=== PATIENT | female | born 1995 | race Caucasian/White ===

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

== ENCOUNTER 2019-08-13 10:25 | Emergency (ER) | payer OTHER ==
[2019-08-13 10:43] VITALS: BP 121/78; PULSE 92; RESP 18; TEMP 98.7
--- NOTE | 2019-08-13 11:15 | ED ---
Psych HPI - General Chief Complaint: Psychiatric Symptoms Stated Complaint: suicidal Time Seen by Provider: 08/13/19 10:40 Source: patient, RN notes reviewed Mode of arrival: ambulatory Limitations: no limitations - History of Present Illness Initial Comments: This a 23-year-old female presents emergency department with friend for significant evaluation. Patient states that she's had increasing depression. Patient states that she's been depressed her several years. Patient states she sees her primary care physician for medications. She does not have a current psychiatrist or therapist. She's had thoughts of quite frequently most recently 2 weeks ago. Patient denies any physical complaints at this time denies any drug or alcohol use. - Related Data Home Medications Medication Instructions Recorded Confirmed FLUoxetine HCL [PROzac] 80 mg PO HS 08/13/19 08/13/19 Ziprasidone HCl 40 mg PO HS 08/13/19 08/13/19 cloNIDine HCL [Catapres] 0.1 mg PO HS 08/13/19 08/13/19 lamoTRIgine [LaMICtal] 150 mg PO HS 08/13/19 08/13/19 Allergies Allergy/AdvReac Type Severity Reaction Status Date / Time No Known Allergies Allergy Verified 08/13/19 11:02 Review of Systems ROS Statement: Those systems with pertinent positive or pertinent negative responses have been documented in the HPI. ROS Other: All systems not noted in ROS Statement are negative. Past Medical History Past Medical History: No Reported History History of Any Multi-Drug Resistant Organisms: None Reported Past Surgical History: Orthopedic Surgery Past Psychological History: ADD/ADHD, Anxiety, Depression Smoking Status: Never smoker Past Alcohol Use History: None Reported Past Drug Use History: None Reported General Exam Limitations: no limitations General appearance: alert, in no apparent distress Head exam: Present: atraumatic, normocephalic, normal inspection Eye exam: Present: normal appearance, PERRL, EOMI. Absent: scleral icterus, conjunctival injection, periorbital swelling ENT exam: Present: normal exam, normal oropharynx, mucous membranes moist, TM's normal bilaterally Neck exam: Present: normal inspection, full ROM. Absent: tenderness, meningismus, lymphadenopathy Respiratory exam: Present: normal lung sounds bilaterally. Absent: respiratory distress, wheezes, rales, rhonchi, stridor Cardiovascular Exam: Present: regular rate, normal rhythm, normal heart sounds. Absent: systolic murmur, diastolic murmur, rubs, gallop, clicks GI/Abdominal exam: Present: soft, normal bowel sounds. Absent: distended, tenderness, guarding, rebound, rigid Neurological exam: Present: alert, oriented X3, CN II-XII intact Skin exam: Present: warm, dry, intact, normal color. Absent: rash Course Vital Signs 08/13/19 10:38 Temperature 98.7 F Pulse Rate 92 Respiratory 18 Rate Blood Pressure 121/78 O2 Sat by Pulse 99 Oximetry Medical Decision Making - Medical Decision Making 23-year-old female presented for psychiatric evaluation revealed a by EPS and case discussed with psychiatrist recommends outpatient follow-up with therapists she has no current suicidal ideation. She has no plan to harm herself return parameters were discussed safety plan in place. - Lab Data Lab Results 08/13/19 Range/Units 11:17 Urine Opiates Screen Not Detected (NotDetected) Ur Oxycodone Screen Not Detected (NotDetected) Urine Methadone Screen Not Detected (NotDetected) Ur Propoxyphene Screen Not Detected (NotDetected) Ur Barbiturates Screen Not Detected (NotDetected) U Tricyclic Antidepress Not Detected (NotDetected) Ur Phencyclidine Scrn Not Detected (NotDetected) Ur Amphetamines Screen Not Detected (NotDetected) U Methamphetamines Scrn Not Detected (NotDetected) U Benzodiazepines Scrn Detected H (NotDetected) Urine Cocaine Screen Not Detected (NotDetected) U Marijuana (THC) Screen Not Detected (NotDetected) Disposition Clinical Impression: Depression Disposition: HOME SELF-CARE Condition: Stable Instructions (If sedation given, give patient instructions): Depression (ED) Additional Instructions: Please return to the Emergency Department if symptoms worsen or any other concerns. Is patient prescribed a controlled substance at d/c from ED?: No Referrals: Starr Alvarez DO [Primary Care Provider] - 1-2 days Time of Disposition: 13:23
[2019-08-13 11:49] LABS: Amphetamine Screen,Urine Not Detected (NotDetected); Barbiturate Screen,Urine Not Detected (NotDetected); Benzodiazepines Screen,Urine Detected (NotDetected); Cocaine Screen,Urine Not Detected (NotDetected); Methadone Screen, Urine Not Detected (NotDetected); Opiate Screen,Urine Not Detected (NotDetected); Oxycodone Screen, Urine Not Detected (NotDetected); Phencyclidine Screen,Urine Not Detected (NotDetected); Tricyclic Antidepressant,Urine Not Detected (NotDetected); Urn Cannabinoid Scrn Not Detected (NotDetected)
== END 2019-08-13 13:34 | disposition home or self-care (01) ==
LOC: EC 10:25
DX: F32.9 Major depressive disorder, single episode, unspecified (principal); F41.9 Anxiety disorder, unspecified; F90.9 Attention-deficit hyperactivity disorder, unspecified type; Z79.899 Other long term (current) drug therapy
CPT/HCPCS: 80306; 82075; 99285

== ENCOUNTER 2019-08-20 10:07 | Inpatient (IN) | payer MEDICAID, OTHER ==
[2019-08-20 14:14] LABS: ALT 23 U/L (4-34); AST 27 U/L (14-36); Acetaminophen <10.0 ug/mL; African American GFR (CKD) >90 (>60 ml/min/1.73 sqM); Albumin 3.9 g/dL (3.5-5.0); Alcohol <10 mg/dL; Alkaline Phosphatase 109 U/L (38-126); Anion Gap 8 mmol/L; Blood Urea Nitrogen 15 mg/dL (7-17); Calcium 9.3 mg/dL (8.4-10.2); Carbon Dioxide 25 mmol/L (22-30); Chloride 103 mmol/L (98-107); Glucose 90 mg/dL (74-99); Non-African American GFR(CKD) >90 (>60 ml/min/1.73 sqM); Salicylate <1.0 mg/dL; Sodium 136 mmol/L (137-145); Total Bilirubin 0.4 mg/dL (0.2-1.3); Total Protein 6.8 g/dL (6.3-8.2)
[2019-08-20 14:30] LABS: Anisocytosis Slight; Basophils % (A) 0 %; Eosinophils # (A) 0.1 k/uL (0-0.7); Eosinophils % (A) 1 %; HCT 32.5 % (34.0-46.0); HGB 10.2 gm/dL (11.4-16.0); Hypochromasia Marked; Lymphocytes # (A) 1.6 k/uL (1.0-4.8); Lymphocytes % (A) 17 %; MCH 23.6 pg (25.0-35.0); MCHC 31.4 g/dL (31.0-37.0); Mean Platelet Volume 6.8; Microcytosis Slight; Monocytes # (A) 0.6 k/uL (0-1.0); Monocytes % (A) 6 %; Neutrophils # (A) 7.2 k/uL (1.3-7.7); Neutrophils % (A) 74 %; Platelet Count 324 k/uL (150-450); RBC 4.33 m/uL (3.80-5.40); RDW 16.3 % (11.5-15.5); WBC 9.6 k/uL (3.8-10.6)
[2019-08-20] MEDS ORDERED: ACETAMINOPHEN TAB 325 MG TAB PO PRN (18:19)
[2019-08-20] MEDS ORDERED: MAG HYDROX/AL HYDROX/SIMETH 30 ML CUP PO PRN (18:19)
[2019-08-20] MEDS ORDERED: ZIPRASIDONE 20 MG VIAL IM PRN (22:35)
[2019-08-20] MEDS ORDERED: lamoTRIgine 100 MG TAB PO SCH (22:45)
[2019-08-20] MEDS ORDERED: ZIPRASIDONE 20 MG CAP PO SCH (23:00)
[2019-08-20] MEDS ORDERED: MAGNESIUM HYDROXIDE 2,400 MG/10 ML CUP PO PRN (23:00)
[2019-08-20] MEDS ORDERED: cloNIDine HCL 0.1 MG TAB PO SCH (23:00)
[2019-08-20] MEDS ORDERED: LORazepam 1 MG TAB PO PRN (23:00)
[2019-08-20] MEDS ORDERED: lamoTRIgine 25 MG TAB PO SCH (23:00)
[2019-08-21 08:17] LABS: Anisocytosis Slight; Basophils % (A) 1 %; Eosinophils # (A) 0.1 k/uL (0-0.7); Eosinophils % (A) 2 %; HCT 33.9 % (34.0-46.0); HGB 10.3 gm/dL (11.4-16.0); Hypochromasia Moderate; Lymphocytes % (A) 23 %; MCH 22.6 pg (25.0-35.0); MCHC 30.4 g/dL (31.0-37.0); MCV 74.2 fL (80.0-100.0); Mean Platelet Volume 7.5; Microcytosis Slight; Monocytes # (A) 0.6 k/uL (0-1.0); Monocytes % (A) 7 %; Neutrophils # (A) 5.5 k/uL (1.3-7.7); Neutrophils % (A) 65 %; Platelet Count 333 k/uL (150-450); RBC 4.56 m/uL (3.80-5.40); RDW 16.5 % (11.5-15.5); WBC 8.4 k/uL (3.8-10.6)
[2019-08-21 08:29] LABS: ALT 23 U/L (4-34); AST 26 U/L (14-36); African American GFR (CKD) >90 (>60 ml/min/1.73 sqM); Albumin 4.1 g/dL (3.5-5.0); Alkaline Phosphatase 106 U/L (38-126); Anion Gap 10 mmol/L; Blood Urea Nitrogen 14 mg/dL (7-17); Calcium 9.3 mg/dL (8.4-10.2); Carbon Dioxide 27 mmol/L (22-30); Chloride 103 mmol/L (98-107); Cholesterol 222 mg/dL (<200); Glucose 87 mg/dL (74-99); HDL Cholesterol 41 mg/dL (40-60); LDL Cholesterol,Calculated 145 mg/dL (0-99); Non-African American GFR(CKD) >90 (>60 ml/min/1.73 sqM); Potassium 4.3 mmol/L (3.5-5.1); Sodium 140 mmol/L (137-145); Total Bilirubin 0.6 mg/dL (0.2-1.3); Total Protein 7.1 g/dL (6.3-8.2); Triglycerides 180 mg/dL (<150)
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
[2019-08-21 18:07] LABS: Hemoglobin A1C 5.8 % (4.0-6.0)
[2019-08-21] MEDS: traZODone HCL 50 MG TAB PO SCH (20:06)
[2019-08-21] MEDS: lamoTRIgine 100 MG TAB PO SCH (20:07)
[2019-08-21] MEDS: FLUoxetine HCL 20 MG CAP PO SCH (20:07)
--- NOTE | 2019-08-21 22:36 | P.CONS ---
History of Present Illness - Reason for Consult Consult date: 08/21/19 medical eval - Chief Complaint suicidal - History of Present Illness Hope Emanuel is a 23 yo F with PMH significant for major depression who presented to the ED complaining of worsening depression and suicidal thoughts. She was recently seen in the ED last week for the same and at that time was discharged home. Pt feels things have overall worsened over the past month and has become overwhelming. She denies chest pain, shortness of breath, cough, headache, fever or chills. On presentation her vitals were stable, labs significant for Hgb 10, UDS negative. Review of Systems All systems: negative Constitutional: Denies chills, Denies fever Eyes: denies blurred vision, denies pain Ears, nose, mouth and throat: Denies headache, Denies sore throat Cardiovascular: Denies chest pain, Denies shortness of breath Respiratory: Denies cough Gastrointestinal: Denies abdominal pain, Denies diarrhea, Denies nausea, Denies vomiting Genitourinary: Denies dysuria, Denies hematuria Musculoskeletal: Denies myalgias Integumentary: Denies pruritus, Denies rash Neurological: Denies numbness, Denies weakness Psychiatric: Reports as per HPI, Reports anhedonia, Reports depression, Reports suicidal ideation, Denies anxiety Endocrine: Denies fatigue, Denies weight change Past Medical History Past Medical History: No Reported History History of Any Multi-Drug Resistant Organisms: None Reported Past Surgical History: Orthopedic Surgery Past Psychological History: ADD/ADHD, Anxiety, Depression Smoking Status: Never smoker Past Alcohol Use History: None Reported Past Drug Use History: None Reported Medications and Allergies Home Medications Medication Instructions Recorded Confirmed Type FLUoxetine HCL [PROzac] 80 mg PO HS 08/13/19 08/13/19 History Ziprasidone HCl 40 mg PO HS 08/13/19 08/13/19 History cloNIDine HCL [Catapres] 0.1 mg PO HS 08/13/19 08/13/19 History lamoTRIgine [LaMICtal] 150 mg PO HS 08/13/19 08/13/19 History Allergies Allergy/AdvReac Type Severity Reaction Status Date / Time No Known Allergies Allergy Verified 08/13/19 11:02 Physical Exam Vitals: Vital Signs Temp Pulse Resp BP Pulse Ox 08/21/19 06:37 98.6 F 78 18 115/69 96 General: well nourished, well developed, NAD. Vitals reviewed Eyes: PERRL, EOMI, conjunctiva normal HENT: normocephalic, mucus membranes moist Neck: supple, no JVD Lungs: normal respiratory effort, no wheezes or rales CV: Regular rate and rhythm, no murmur. Peripheral pulses 2+ Abdomen: soft, nondistended, no organomegaly Lymph: no cervical or axillary LAD Skin: warm and dry. Neuro: A&Ox3, anxious mood Results CBC & Chem 7: 08/21/19 07:37 07 07:37 Labs: Abnormal Lab Results - Last 24 Hours (Table) 08/21/19 08/21/19 Range/Units 07:37 07:37 Hgb 10.3 L (11.4-16.0) gm/dL Hct 33.9 L (34.0-46.0) % MCV 74.2 L (80.0-100.0) fL MCH 22.6 L (25.0-35.0) pg MCHC 30.4 L (31.0-37.0) g/dL RDW 16.5 H (11.5-15.5) % Triglycerides 180 H (<150) mg/dL Cholesterol 222 H (<200) mg/dL LDL Cholesterol, Calc 145 H (0-99) mg/dL Assessment and Plan (1) Severe recurrent major depression Current Visit: Yes Status: Acute Code(s): F33.2 - MAJOR DEPRESSV DISORDER, RECURRENT SEVERE W/O PSYCH FEATURES SNOMED Code(s): 975104567016 (2) Suicidal ideation Current Visit: Yes Status: Acute Code(s): R45.851 - SUICIDAL IDEATIONS SNOMED Code(s): 9603096 (3) Anemia Current Visit: Yes Status: Acute Code(s): D64.9 - ANEMIA, UNSPECIFIED SNOMED Code(s): 440662151 Plan: 1. Suicidal ideation. Severe MDD. Management per psychiatry 2. Anemia. Obtain ferritin, suspect secondary to menorrhagia. Consider iron supplementation
[2019-08-22] MEDS: lamoTRIgine 100 MG TAB PO SCH ×3 (08:26→21:28)
[2019-08-22] MEDS: FLUoxetine HCL 20 MG CAP PO SCH ×2 (08:51→21:27)
[2019-08-22 09:39] VITALS: RESP 16
--- NOTE | 2019-08-22 10:08 | P.PN ---
Progress Note - Text Progress Note Date: 08/22/19 Interval History: Patient was seen wandering the hallways and was directable and agreeable to dakotah jones with investigative writer in the office. Patient had just recently taken her medications this morning. Patient appeared to be somewhat tearful and was focused on discharge claiming that her mother does not want her to be in the hospital any longer and that she will watch her as an outpatient. She continues to minimize her symptoms and depression. Patient was fairly superficial with investigative writer in claims that she is doing "fine" however was tearful throughout the interview and had an incongruent affect. Patient offered no other complaints on the unit and states that she has been going to groups. Patient states that she is also taking her medications as prescribed. She continues to endorse anxiety. She states that she did not sleep well last night. At this time patient denies any suicidal or homical ideations, intent or plan. Patient denies any auditory, visual hallucinations and denies any paranoia or delusions. Patient denies any side effects from the medications and has been compliant with meds. Mental Status Exam: General Appearance: Patient appears to be overweight, stated age is alert, directable, and tearful. Patient appears to have fair hygiene and grooming. Superficial. Behavior: Patient is seated without any agitated behavior. Tearful. Demanding. Speech: Patient's speech is fluent and nonpressured. Soft tone of voice. Mood/Affect: Patient reports their mood is "okay now", affect is congruent and tearful. Suicidality/Homicidality: Patient denies having any homicidal ideation intent or plan. Denies any suicidal ideations intent or plan Perceptions: Patient denies any visual hallucinations and denies any auditory hallucinations Though content/process: There is no evidence of any delusional thought content and thought process is linear and goal-directed. Preoccupied with discharge and continues minimizing her symptoms. Memory and concentration: AOX3, grossly intact for the purposes of this session Judgment and insight: poor, superficial. Assessment Major depressive disorder, without psychotic features Plan: -Patient continues to meet criteria for inpatient psychiatric admission for symptom stabilization and safety. Patient has signed adult voluntary form and medication consent and was placed in patient's chart. Patient signed AMA however revoked her AMA soon after. -Medications: Continue Prozac 80 mg nightly for anxiety/mood, Lamictal 20 mg twice a day for mood stabilization/depression, continue with trazodone 50 mg nightly for insomnia/mood. -When necessary Ativan and Geodon for agitation/aggression. -NRT -not needed as patient does not smoke. -SW on board for discharge planning. Encouraged the patient to participate in milieu.
[2019-08-22] MEDS: traZODone HCL 50 MG TAB PO SCH (21:28)
[2019-08-23] MEDS: lamoTRIgine 100 MG TAB PO SCH ×2 (08:21→20:48)
--- NOTE | 2019-08-23 16:52 | P.PN ---
Progress Note - Text Progress Note Date: 08/23/19 Subjective: Patient was seen today as a cross coverage for . The patient was evaluated, chart reviewed, case discussed with the treatment team. Patient reported good sleep, and according to chart review patient slept about 8 hours last night. Appetite was reported as "good ". Patient has been going to all groups and other unit activities. The patient is compliant with her medications and denies any adverse reactions. Patient reports her mood is much better today and she was very excited about her family would visit her today and tomorrow. Denies feeling depressed, suicidal or homicidal ideation, and he denies any hallucinations. She reports no mood swings, anger or agitation. Denies any manic or psychotic symptoms. Patient was talking about continuing therapy after discharge and hoping for discharge on Sunday. Objective: Vitals has been reviewed. Mental status examination; Appearance: The patient appears stated age, adequately groomed and dressed, no specific features. Gait/posture: Normal gait, Normal arm swinging: No abnormal movements. Attitude and behavior: engaged, cooperative, eye contact. Motor activity: Normal psychomotor activity Speech: Normal rate, tone. Mood: Euthymic Affect: Constricted Thought form: goal-directed, linear, coherent. Thought content: Non-delusional, denies suicidal thoughts, denies homicidal thoughts, denies intentions or plans. Perception: Denies any auditory or visual hallucinations Attention: No impairment. Orientation: Patient patient was fully oriented to time place person and situation. Insight: Patient has fair insight about her psychiatric disorder. Judgment: Patient has fair judgment about her psychiatric treatment. Assessment: Major depressive disorder, severe, without psychotic features. Plan: Continue inpatient level of care due to need for further monitoring and discharge planning Precautions: Continue 15 minutes check for safety. Consider medical consultation if any acute medical issues arise. Provide the patient individual, group therapy, substance use disorder counseling to give better insight and learn coping skills. Continue follow-up with the patient daily to monitor progress of depression symptoms. Medications: Continue Lamictal for mood stabilization and depression. Continue Prozac for depression and anxiety. Continue trazodone at bedtime to help with depression and insomnia. Discharge patient to OUTPATIENT services upon a stabilization
[2019-08-23] MEDS: FLUoxetine HCL 20 MG CAP PO SCH (20:47)
[2019-08-23] MEDS: traZODone HCL 50 MG TAB PO SCH (20:48)
[2019-08-24 06:30] VITALS: TEMP 98.5
[2019-08-24] MEDS: lamoTRIgine 100 MG TAB PO SCH ×2 (08:22→20:41)
--- NOTE | 2019-08-24 15:06 | P.PN ---
Progress Note - Text Progress Note Date: 08/24/19 Subjective: Patient was seen today as a cross coverage for . The patient was evaluated, chart reviewed, case discussed with the treatment team. Patient reports having good sleep last night and he denies any appetite problems. She continues to attend groups and most of unit activities, and he continues to take her psychiatric medications was no side effects reported. Patient reports has very good visit with her family yesterday and she is expecting other family members to visit today. She reports feeling stable emotionally, denies feeling depressed, hopeless, or suicidal. She denies any manic or psychotic symptoms. Patient feels excited about possibility of discharge tomorrow. Objective: Mental status examination; Appearance: The patient appears stated age, adequately groomed and dressed, no specific features. Gait/posture: Normal gait, Normal arm swinging: No abnormal movements. Attitude and behavior: engaged, cooperative, eye contact. Motor activity: Normal psychomotor activity Speech: Normal rate, tone. Mood: "Feeling great". Affect: Constricted Thought form: goal-directed, linear, coherent. Thought content: Non-delusional, denies suicidal thoughts, denies homicidal thoughts, denies intentions or plans. Perception: Denies any auditory or visual hallucinations Attention: No impairment. Orientation: Patient patient was fully oriented to time place person and situation. Insight: Patient has fair insight about her psychiatric disorder. Judgment: Patient has fair judgment about her psychiatric treatment. Assessment: Major depressive disorder, severe, without psychotic features. Plan: Continue inpatient level of care due to need for further monitoring and discharge planning Precautions: Continue 15 minutes check for safety. Consider medical consultation if any acute medical issues arise. Provide the patient individual, group therapy, substance use disorder counseling to give better insight and learn coping skills. Continue follow-up with the patient daily to monitor progress of depression symptoms. Medications: Continue Lamictal for mood stabilization and depression. Continue Prozac for depression and anxiety. Continue trazodone at bedtime to help with depression and insomnia. Discharge patient to OUTPATIENT services upon a stabilization
[2019-08-24 16:08] LABS: Appearance,Urine Clear (Clear); Bacteria,Urine Occasional /hpf; Bilirubin,Urine Negative (Negative); Blood,Urine Negative (Negative); Color,Urine Yellow; Glucose,Urine (UA) Negative (Negative); Ketones,Urine Negative (Negative); Leukocyte Esterase,Urine Trace (Negative); Mucus,Urine Rare /hpf; Nitrite,Urine Negative (Negative); Protein,Urine Negative (Negative); RBC,Urine <1 /hpf (0-5); Specific Gravity,Urine 1.022 (1.001-1.035); Squamous Epithelial Cell,Urine 1 /hpf (0-4); Urobilinogen,Urine <2.0 mg/dL (<2.0); WBC,Urine 2 /hpf (0-5)
[2019-08-24] MEDS: FLUoxetine HCL 20 MG CAP PO SCH (20:41)
[2019-08-24] MEDS: traZODone HCL 50 MG TAB PO SCH (20:41)
[2019-08-25 06:47] VITALS: BP 116/58; PULSE 85
[2019-08-25] MEDS: lamoTRIgine 100 MG TAB PO SCH (08:17)
--- NOTE | 2019-08-25 10:13 | P.DS ---
Providers Date of admission: 08/20/19 17:07 Expected date of discharge: 08/25/19 Attending physician: Ming Yang MD Consults: 08/20/19 18:19 Consult Physician Routine Consulting Provider: Subhash Lynn Consult Reason/Comments: H & P and medical care Do you want consulting provider notified?: Yes Primary care physician: Starr Alvarez - Discharge Diagnosis(es) (1) Major depressive disorder without psychotic features Current Visit: Yes Status: Acute Priority: High Hospital Course: Admission HPI: Patient is a 23-year-old female who currently lives with her girlfriend and apartment has no kids and is currently working at the [employer]. Patient presented to the hospital yesterday for complaints of depression and suicidal thoughts. Patient was previously seen in the ER on 08/13/2019 for depression and was discharged back home. Patient claims that her girlfriend told her to come to the hospital to get help. She states that she was having a "rough month" and states that it has gradually been worsening for her. She endorsed significant stress related to her work and states that they have been very busy at the animal [employer] and states that she is having significant problems with her boss. She states that her mood has been depressed however currently claims that her mood is "okay now" and claims that she has good support from her girlfriend and other family members. She states that she has mild anxiety at this time. She claims that she was having thoughts of suicide at home however this has remitted at this time. She denied any history of manic episodes. She claims that she has been taking her medications as prescribed however states that she is seeing a PCP for her psychiatric medications. She states that her sleep is about 7-8 hours a night. Patient denies any suicidal or homicidal ideations intent or plan. At this time patient denies any auditory or visual hallucinations. Patient denies any flight of ideas racing thoughts and increased in goal directed behavior. Patient admits to using alcohol occasionally however denies any other drug use. Denies any cigarette use. Hospital course: Upon admission to the unit patient was initially depressed, tearful. Patient initially signed adult voluntary form however shortly after signed AMA and ended up revoking AMA the next day. Patient was however directable and agreeable to commence treatment. Patient got along well with other patients on the unit and followed unit protocol. Patient was compliant with the medications and denied any side effects throughout hospital course. Patient was re-started on her home dose of Prozac 80 mg nightly for anxiety/mood and Lamictal was restarted and increased to 100 mg twice a day for mood stabilization/depression, trazodone was started at 50 mg nightly for insomnia/mood. Clonidine and Geodon were discontinued. Patient spoke of her stressors and engaged in therapy both group and individual. Patient was also seen by medical team for history and physical exam. Throughout the course of the hospitalization patient gradually improved with regards to mood, anxiety, sleep and became future oriented with improved insight and judgment. On the day of discharge patient denied any suicidal or homicidal ideations intent or plan denied any auditory or visual hallucinations. Patient endorsed wanting to live for her health and her future. The patient denied any access to guns or weapons. Patient denied any paranoia and did not endorse any delusions. Patient does not have a significant history of substance abuse however was counseled on abstaining from all substances including alcohol and marijuana. Patient was also counseled on the medications and need for regular compliance and was encouraged to follow-up with their outpatient appointment for mental health and also for primary care. Prior to discharge a family meeting will be arranged by social service assistant to answer any questions and ensure safety upon discharge. Mental status exam: General Appearance: Patient appears to be overweight, stated age is alert, has tattoos on her arms, pleasant, and cooperative. Patient is in no acute distress and has fair hygiene and grooming Behavior: Patient is calmly seated without any agitated behavior. Cooperative. Speech: Patient's speech is fluent and nonpressured. Mood/Affect: Patient reports their mood is "much better", affect is congruent and euthymic. Suicidality/Homicidality: Patient denies having any suicidal or homicidal ideation intent or plan. Perceptions: Patient denies any auditory or visual hallucinations. Though content/process: There is no evidence of any delusional thought content and thought process is linear and goal-directed. more future oriented Memory and concentration: AOX3, grossly intact for the purposes of this session. Can spell "WORLD" backwards correctly. Judgment and insight: Improved with guarded prognosis Impression: Major depressive disorder, without psychotic features Plan: -Continue with discharge today as patient has improved and stabilized psychiatrically and is not currently an imminent threat to herself and/or others. -Continue medications: Prozac 80 mg daily for anxiety/mood, Lamictal 100 mg twice a day for mood stabilization/depression, trazodone 50 mg daily at bedtime for insomnia/mood. -Patient was counseled on the need for medication compliance and appropriate follow-up at mental health and also primary care for medical issues. Patient verbalized understanding and agreed. -Social work to arrange for and conduct family meeting to ensure safety upon discharge and answer any questions/concerns. Social work also to arrange for patients follow up appointments for psychiatric care along with follow up with primary care provider. Patient was also encouraged to continue on with her individual therapy as an outpatient. -Patient counseled on abstaining from recreational drugs and marijuana and alcohol. Was informed/educated on the adverse effects on their physical and mental health. Patient verbally agreed and understood. -Patient was instructed to return to the hospital or seek immediate medical care if their psychiatric or medical symptoms do worsen or reoccur. Allergies Allergy/AdvReac Type Severity Reaction Status Date / Time No Known Allergies Allergy Verified 08/13/19 11:02 Laboratory Results WBC 8.4 k/uL (3.8-10.6) 08/21/19 07:37 RBC 4.56 m/uL (3.80-5.40) 08/21/19 07:37 Hgb 10.3 gm/dL (11.4-16.0) L 08/21/19 07:37 Hct 33.9 % (34.0-46.0) L 08/21/19 07:37 MCV 74.2 fL (80.0-100.0) L 08/21/19 07:37 MCH 22.6 pg (25.0-35.0) L 08/21/19 07:37 MCHC 30.4 g/dL (31.0-37.0) L 08/21/19 07:37 RDW 16.5 % (11.5-15.5) H 08/21/19 07:37 Plt Count 333 k/uL (150-450) 08/21/19 07:37 Neutrophils % 65 % 08/21/19 07:37 Lymphocytes % 23 % 08/21/19 07:37 Monocytes % 7 % 08/21/19 07:37 Eosinophils % 2 % 08/21/19 07:37 Basophils % 1 % 08/21/19 07:37 Neutrophils # 5.5 k/uL (1.3-7.7) 08/21/19 07:37 Lymphocytes # 2.0 k/uL (1.0-4.8) 08/21/19 07:37 Monocytes # 0.6 k/uL (0-1.0) 08/21/19 07:37 Eosinophils # 0.1 k/uL (0-0.7) 08/21/19 07:37 Basophils # 0.0 k/uL (0-0.2) 08/21/19 07:37 Hypochromasia Moderate 08/21/19 07:37 Anisocytosis Slight 08/21/19 07:37 Microcytosis Slight 08/21/19 07:37 Sodium 140 mmol/L (137-145) 08/21/19 07:37 Potassium 4.3 mmol/L (3.5-5.1) 08/21/19 07:37 Chloride 103 mmol/L (98-107) 08/21/19 07:37 Carbon Dioxide 27 mmol/L (22-30) 08/21/19 07:37 Anion Gap 10 mmol/L 08/21/19 07:37 BUN 14 mg/dL (7-17) 08/21/19 07:37 Creatinine 0.76 mg/dL (0.52-1.04) 08/21/19 07:37 Est GFR (CKD-EPI)AfAm >90 (>60 ml/min/1.73 sqM) 08/21/19 07:37 Est GFR (CKD-EPI)NonAf >90 (>60 ml/min/1.73 sqM) 08/21/19 07:37 Glucose 87 mg/dL (74-99) 08/21/19 07:[address] Glu mg/dL 120 08/21/19 07:37 Hemoglobin A1c 5.8 % (4.0-6.0) 08/21/19 07:37 Calcium 9.3 mg/dL (8.4-10.2) 08/21/19 07:37 Ferritin 15.7 ng/mL (10.0-291.0) 08/20/19 12:35 Total Bilirubin 0.6 mg/dL (0.2-1.3) 08/21/19 07:37 AST 26 U/L (14-36) 08/21/19 07:37 ALT 23 U/L (4-34) 08/21/19 07:37 Alkaline Phosphatase 106 U/L (38-126) 08/21/19 07:37 Total Protein 7.1 g/dL (6.3-8.2) 08/21/19 07:37 Albumin 4.1 g/dL (3.5-5.0) 08/21/19 07:37 Triglycerides 180 mg/dL (<150) H 08/21/19 07:37 Cholesterol 222 mg/dL (<200) H 08/21/19 07:37 LDL Cholesterol, Calc 145 mg/dL (0-99) H 08/21/19 07:37 HDL Cholesterol 41 mg/dL (40-60) 08/21/19 07:37 TSH 3.640 mIU/L (0.465-4.680) 08/21/19 07:37 Urine Color Yellow 08/24/19 15:00 Urine Appearance Clear (Clear) 08/24/19 15:00 Urine pH 5.0 (5.0-8.0) 08/24/19 15:00 Ur Specific [place] 1.022 (1.001-1.035) 08/24/19 15:00 Urine Protein Negative (Negative) 08/24/19 15:00 Urine Glucose (UA) Negative (Negative) 08/24/19 15:00 Urine Ketones Negative (Negative) 08/24/19 15:00 Urine Blood Negative (Negative) 08/24/19 15:00 Urine Nitrite Negative (Negative) 08/24/19 15:00 Urine Bilirubin Negative (Negative) 08/24/19 15:00 Urine Urobilinogen <2.0 mg/dL (<2.0) 08/24/19 15:00 Ur Leukocyte Esterase Trace (Negative) H 08/24/19 15:00 Urine RBC <1 /hpf (0-5) 08/24/19 15:00 Urine WBC 2 /hpf (0-5) 08/24/19 15:00 Ur Squamous Epith Cells 1 /hpf (0-4) 08/24/19 15:00 Urine Bacteria Occasional /hpf (None) H 08/24/19 15:00 Urine Mucus Rare /hpf (None) H 08/24/19 15:00 Urine HCG, Qual Not Detected (Not Detectd) 08/24/19 15:00 Salicylates <1.0 mg/dL 08/20/19 12:35 Acetaminophen <10.0 ug/mL 08/20/19 12:35 Serum Alcohol <10 mg/dL 08/20/19 12:35 Vital Signs Temp 98.5 F 08/24/19 06:29 Pulse 85 08/25/19 06:46 Resp 16 08/25/19 06:46 BP 116/58 08/25/19 06:46 Pulse Ox 99 08/24/19 06:29 Intake & Output 08/24/19 08/25/19 08/25/19 18:59 06:59 18:59 Weight 124.2 kg Patient Condition at Discharge: Stable Plan - Discharge Summary New Discharge Prescriptions: New traZODone HCL [Desyrel] 50 mg PO HS 30 Days tab lamoTRIgine [LaMICtal] 100 mg PO BID 30 Days tab Acetaminophen Tab [Tylenol] 650 mg PO Q4HR PRN tab PRN Reason: Pain/Discomfort Continue FLUoxetine HCL [PROzac] 80 mg PO HS 30 Days cap Discontinued cloNIDine HCL [Catapres] 0.1 mg PO HS lamoTRIgine [LaMICtal] 150 mg PO HS Ziprasidone HCl 40 mg PO HS Discharge Medication List Acetaminophen Tab [Tylenol] 650 mg PO Q4HR PRN tab 08/25/19 [Rx] FLUoxetine HCL [PROzac] 80 mg PO HS 30 Days cap 08/25/19 [Rx] lamoTRIgine [LaMICtal] 100 mg PO BID 30 Days tab 08/25/19 [Rx] traZODone HCL [Desyrel] 50 mg PO HS 30 Days tab 08/25/19 [Rx] Follow up Appointment(s)/Referral(s): Starr Alvarez DO [Primary Care Provider] - 1 Week Activity/Diet/Wound Care/Special Instructions: Activity and diet as tolerated. Avoid the use of street drugs and alcohol. Take all medications as prescribed. When you are in need of refills on your medications please contact your medical provider and/or outpatient psychiatrist to have this done. Please go to scheduled outpatient appointment for aftercare treatment. If symptoms return or become worse, call the crisis line at and/or go to the nearest emergency room for evaluation Discharge Disposition: HOME SELF-CARE
[2019-08-25 11:16] LABS: Urine Alcohol Negative (Negative); Urine Barbiturate Negative (Negative); Urine Cocaine Negative (Negative); Urine Methadone Negative (Negative); Urine Opiates Negative (Negative); Urine Phencyclidine Negative (Negative)
== END 2019-08-25 12:20 | disposition home or self-care (01) | DRG 885 ==
LOC: EC 10:07 → 3MHU 17:07
PROVIDERS: ADMIT Psychiatry & Neurology Psychiatry; ATTEND Psychiatry & Neurology Psychiatry
DX: F33.2 Major depressive disorder, recurrent severe without psychotic features (principal); R45.851 Suicidal ideations; F41.9 Anxiety disorder, unspecified; G47.00 Insomnia, unspecified; F90.9 Attention-deficit hyperactivity disorder, unspecified type; D64.9 Anemia, unspecified; Z79.899 Other long term (current) drug therapy
CPT/HCPCS: 36415; 80053; 80061; 80306; 80320; 80329; 81001; 81025; 82728; 83036; 83520; 84443; 85025; 99285